=== PATIENT | female | born 1945 | race Caucasian/White ===

== ENCOUNTER → 2017-03-29 | Outpatient (CLI) | payer MEDICARE, BC | END | disposition home or self-care (01) | LOC: HKI 11:36 | DX: M25.561 Pain in right knee (principal); Z96.651 Presence of right artificial knee joint | CPT/HCPCS: 73562; 73562-RT ==

== ENCOUNTER → 2017-05-18 | Outpatient (CLI) | payer MEDICARE, BC | END | disposition home or self-care (01) | LOC: HKI 10:14 | DX: M70.72 Other bursitis of hip, left hip (principal); Y93.9 Activity, unspecified | CPT/HCPCS: 20610 ==

== ENCOUNTER → 2017-09-15 | Outpatient (CLI) | payer MEDICARE, BC | END | disposition home or self-care (01) | LOC: HKI 13:46 | DX: M70.62 Trochanteric bursitis, left hip (principal) | CPT/HCPCS: 20610 ==

== ENCOUNTER 2018-08-18 04:31 | Emergency (ER) | payer MEDICARE, BC ==
[2018-08-18] MEDS: morphine LIQ (10 MG/5 ML) CUP PO (05:06)
[2018-08-18] MEDS: ONDANSETRON (ODT) 4 MG TAB ODT (05:07)
== END 2018-08-18 06:49 | disposition home or self-care (01) ==
LOC: E/R 06:49
DX: S30.0XXA Contusion of lower back and pelvis, initial encounter (principal); M54.9 Dorsalgia, unspecified; W18.39XA Other fall on same level, initial encounter; Y92.9 Unspecified place or not applicable
CPT/HCPCS: 71045; 72100; 99284-25